=== PATIENT | male | born 2005 | race Caucasian/White ===

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

== ENCOUNTER 2024-11-14 01:35 | Emergency (ER) | payer OTHER ==
[~2024-11-14] VITALS: Ht 185.4 cm; Wt 96.7 kg
[2024-11-14] MEDS: OXYMETAZOLINE 0.05% NASAL SPRAY ONE (03:31)
[2024-11-14 03:32] VITALS: BP 135/82; TEMP 97.9; O2SAT 99
== END 2024-11-14 03:37 | disposition home or self-care (01) ==
LOC: M ED 01:35
DX: R04.0 Epistaxis (principal); Z88.0 Allergy status to penicillin